=== PATIENT | female | born 1960 | race African-American/Black ===

== ENCOUNTER 2018-06-11 22:49 | Emergency (ER) | payer SELFPAY ==
[~2018-06-11] VITALS: Ht 160 cm; Wt 75.0 kg
[2018-06-12] MEDS ORDERED: KETOROLAC 30MG/ML VIAL IM ONE (00:15)
[2018-06-12 02:28] VITALS: BP 128/77
== END 2018-06-12 02:29 | disposition home or self-care (01) ==
LOC: ER 22:49
DX: J06.9 Acute upper respiratory infection, unspecified (principal); I88.9 Nonspecific lymphadenitis, unspecified; J45.909 Unspecified asthma, uncomplicated; F12.10 Cannabis abuse, uncomplicated; R05 Cough; Z87.891 Personal history of nicotine dependence; Z88.0 Allergy status to penicillin
CPT/HCPCS: 87070; 87430; 96372; 99284; J1885; Z7610